=== PATIENT | male | born 1995 | race Caucasian/White ===

== ENCOUNTER 2017-02-11 00:39 | Emergency (ER) | payer SELFPAY ==
[~2017-02-11] VITALS: Ht 182.9 cm; Wt 79.5 kg
[2017-02-11 00:42] VITALS: TEMP 98
[2017-02-11 03:00] VITALS: BP 113/78; PULSE 52
== END 2017-02-11 03:07 | disposition home or self-care (01) ==
LOC: COL.ER 00:39
DX: S06.0X0A Concussion without loss of consciousness, initial encounter (principal); S60.511A Abrasion of right hand, initial encounter; S00.01XA Abrasion of scalp, initial encounter; M25.511 Pain in right shoulder; V13.4XXA Pedal cycle driver injured in collision with car, pick-up truck or van in traffic accident, initial encounter; Y92.414 Local residential or business street as the place of occurrence of the external cause